=== PATIENT | male | born 1960 | race Caucasian/White ===

== ENCOUNTER → 2018-11-16 | Outpatient (CLI) | payer OTHER | END | disposition home or self-care (01) | LOC: HKI 10:22 | DX: Z01.818 Encounter for other preprocedural examination (principal); M16.12 Unilateral primary osteoarthritis, left hip | CPT/HCPCS: 73523 ==

== ENCOUNTER 2019-01-03 05:38 | Inpatient (IN) | payer OTHER ==
[2019-01-03] MEDS ORDERED: ACETAMINOPHEN 500 MG TAB PO (06:00)
[2019-01-03] MEDS: DEXAMETHASONE 4 MG/ML 1 ML INJ IV (06:40)
[2019-01-03] MEDS: LANSOPRAZOLE 30 MG CAP PO (06:40)
[2019-01-03] MEDS: ACETAMINOPHEN 1000MG/100ML IV 100 ML IVPB (06:40)
[2019-01-03] MEDS: GABAPENTIN 300 MG CAP PO ×2 (06:41→20:21)
[2019-01-03] MEDS: CELECOXIB 200 MG CAP PO (06:41)
[2019-01-03] MEDS: LACTATED RINGER'S 1,000 ML IV ×2 (06:44→12:26)
[2019-01-03] MEDS: ONDANSETRON 4 MG INJ IV (06:44)
[2019-01-03] MEDS ORDERED: SEVOFLURANE 15 MIN (07:30)
[2019-01-03] MEDS ORDERED: EPINEPHrine 1 MG INJ (07:32)
[2019-01-03] MEDS ORDERED: MIDAZOLAM 1 MG/ML 2 ML INJ (07:34)
[2019-01-03] MEDS ORDERED: FENTAnyl 50 MCG/ML VIAL (07:34)
[2019-01-03] MEDS ORDERED: PROPOFOL 20 ML (09:14)
[2019-01-03] MEDS ORDERED: CEFAZOLIN 1 GM INJ (09:14)
[2019-01-03] MEDS ORDERED: DEXAMETHASONE 4 MG/ML 5 ML INJ (09:14)
[2019-01-03] MEDS ORDERED: LIDOCAINE 2% (SDV) 5 ML INJ (09:14)
[2019-01-03] MEDS ORDERED: ROCURONIUM 50 MG INJ (09:14)
[2019-01-03] MEDS ORDERED: ACETAMINOPHEN 1000MG/100ML IV 100 ML IVPB (10:00)
[2019-01-03] MEDS: CEFAZOLIN 2 GM/50 ML (PMX) 50 ML IVPB ×3 (10:00→21:21)
[2019-01-03] MEDS ORDERED: NEOSTIGMINE 3 MG/3 ML SYRINGE (11:07)
[2019-01-03] MEDS ORDERED: GLYCOPYRROLATE 0.4 MG INJ (11:07)
[2019-01-03] MEDS ORDERED: ONDANSETRON 4 MG INJ (11:09)
[2019-01-03] MEDS ORDERED: LABETALOL HCL 20MG INJ IV (12:00)
[2019-01-03] MEDS ORDERED: MAGNESIUM HYDROXIDE 30ML CUP PO (12:00)
[2019-01-03] MEDS ORDERED: HYDROmorphONE 1 MG/ML SYG IV (12:00)
[2019-01-03] MEDS ORDERED: SENNA/DOCUSATE NA (8.6MG/50MG) TAB PO (12:00)
[2019-01-03] MEDS ORDERED: METOCLOPRAMIDE 10 MG INJ IV (12:00)
[2019-01-03] MEDS ORDERED: BISACODYL 10 MG SUPP PR (12:00)
[2019-01-03] MEDS ORDERED: EPHEDrine 25 MG/5 ML SYG IV (12:00)
[2019-01-03] MEDS ORDERED: NACL 0.9% 3 ML SYG IV (12:00)
[2019-01-03] MEDS ORDERED: NALOXONE (0.4 MG/ML) INJ IV (12:00)
[2019-01-03] MEDS ORDERED: HYDROmorphONE 1 MG/5 ML IV SYRINGE IV (12:00)
[2019-01-03] MEDS ORDERED: NA PHOSPHATE/BIPHOS 133 ML ENEMA PR (12:00)
[2019-01-03] MEDS ORDERED: hydrALAzine 20 MG INJ IV (12:00)
[2019-01-03] MEDS ORDERED: ALBUTEROL 0.083% (NEB) 2.5 MG/3 ML AMP HHN (12:00)
[2019-01-03] MEDS ORDERED: DIPHENHYDRAMINE 50 MG INJ IV ×2 (12:00)
[2019-01-03] MEDS ORDERED: ONDANSETRON 4 MG INJ IV (12:00)
[2019-01-03] MEDS ORDERED: MEPERIDINE 25 MG INJ IV (12:00)
[2019-01-03] MEDS ORDERED: MIDAZOLAM 1 MG/ML 2 ML INJ IV (12:00)
[2019-01-03] MEDS ORDERED: FENTAnyl 50 MCG/ML VIAL IV ×3 (12:00)
[2019-01-03] MEDS ORDERED: oxyCODONE 5 MG TAB PO ×2 (12:00)
[2019-01-03] MEDS ORDERED: KETOROLAC 30 MG INJ IV (12:00)
[2019-01-03] MEDS: DOCUSATE SODIUM 100 MG CAP PO (12:27)
[2019-01-03] MEDS ORDERED: GLUCOSE GEL 15 GRAM TUBE BUCCAL (12:30)
[2019-01-03] MEDS ORDERED: DEXTROSE 50% 50 ML SYRINGE IV ×2 (12:30)
[2019-01-03] MEDS ORDERED: GLUCOSE GEL 15 GRAM TUBE PO ×2 (12:30)
[2019-01-03] MEDS ORDERED: GLUCAGON 1 MG INJ IM (12:30)
[2019-01-03] MEDS: HYDROmorphONE 1 MG/5 ML IV SYRINGE IV ×3 (12:54→13:07)
[2019-01-03] MEDS: ACETAMINOPHEN 500 MG TAB PO ×2 (13:48→21:20)
[2019-01-03] MEDS: KETOROLAC 15 MG INJ IV (13:49)
[2019-01-03] MEDS: oxyCODONE 5 MG TAB PO ×2 (15:08→19:13)
[2019-01-03] MEDS: SOD CHLORIDE 0.9% 500 ML IV (15:10)
[2019-01-03] MEDS: SOD CHLORIDE 0.9% 1,000 ML IV ×2 (15:14→20:23)
[2019-01-03] MEDS ORDERED: INSULIN ASPART [NOVOLOG] 3 ML PEN SC (17:55)
[2019-01-03] MEDS: INSULIN ASPART [NOVOLOG] 3 ML PEN SC ×3 (17:59→20:33)
[2019-01-03] MEDS: INSULIN GLARGINE [LANTus] (100 UNITS/ML) SYG SC (20:31)
[2019-01-04] MEDS: ACCU-CHEK XX (02:00)
[2019-01-04] MEDS: SOD CHLORIDE 0.9% 1,000 ML IV ×2 (03:44→16:14)
[2019-01-04] MEDS: CEFAZOLIN 2 GM/50 ML (PMX) 50 ML IVPB (03:47)
[2019-01-04 05:00] LABS: ADD MAN DIFF? NO
[2019-01-04 05:05] LABS: BASOPHILS % 0.1 % (0.0-2.0); HEMATOCRIT 29.8 % (42.0-52.0); HEMOGLOBIN 9.7 g/dl (14.0-18.0); LYMPHOCYTES # 0.9 10^3/ul (0.8-2.9); MEAN CORPUSCULAR HGB CONC 32.6 g/dl (32.0-37.0); MEAN CORPUSCULAR VOLUME 85.9 fl (82.0-101.0); MEAN PLATELET VOLUME 9.4 fl (7.4-10.4); MONOCYTE # 1.3 10^3/ul (0.3-0.9); MONOCYTES % 8.4 % (0.0-11.0); NEUTROPHIL # 12.9 10^3/ul (1.6-7.5); NEUTROPHILS % 84.8 % (39.0-77.0); PLATELET COUNT 210 10^3/UL (140-415); RED BLOOD COUNT 3.47 10^6/ul (4.70-6.10); RED CELL DISTRIBUTION WIDTH 13.4 % (11.5-14.5)
[2019-01-04 05:05] LABS: WHITE BLOOD COUNT 15.2 10^3/ul (4.8-10.8)
[2019-01-04 05:14] LABS: HEMOGLOBIN A1C 6.3 % (0-5.9)
[2019-01-04 05:25] LABS: ANION GAP 7 (5-13); BLOOD UREA NITROGEN 13 mg/dl (7-20); CALCIUM 8.9 mg/dl (8.4-10.2); CARBON DIOXIDE 27 mmol/L (21-31); CHLORIDE 106 mmol/L (97-110); CREATININE 0.99 mg/dl (0.61-1.24); Estimated GFR > 60 mL/min (>60); GLUCOSE 170 mg/dl (70-220); POTASSIUM 4.7 mmol/L (3.5-5.1); SODIUM 140 mmol/L (135-144)
[2019-01-04 05:39] LABS: INR 1.08; PROTIME 14.1 Sec (11.9-14.9); PT RATIO 1.1
[2019-01-04 05:44] LABS: CHOLESTEROL 147 mg/dl (100-200)
[2019-01-04 05:44] LABS: CHOL/HDL RATIO 4.7 RATIO; HDL CHOLESTEROL 31 mg/dl (28-71); LDL CHOLESTEROL,CALCULATED 99 mg/dl; TRIGLYCERIDES 85 mg/dl (0-149)
[2019-01-04] MEDS: ACETAMINOPHEN 500 MG TAB PO ×2 (06:20→14:21)
[2019-01-04] MEDS: PANTOPRAZOLE (EC) 40 MG TAB PO (06:20)
[2019-01-04] MEDS: BETHANECHOL 25 MG TAB PO (06:21)
[2019-01-04 07:26] LABS: ADD UMIC YES; UR ASCORBIC ACID NEGATIVE (NEGATIVE); UR BACTERIA FEW /HPF (NONE SEEN); UR BILIRUBIN (Dip) NEGATIVE (NEGATIVE); UR BLOOD (Dip) 1+ mg/dL (NEGATIVE); UR CLARITY CLEAR (CLEAR); UR COLOR STRAW (YELLOW); UR GLUCOSE (Dip) NEGATIVE (NEGATIVE); UR KETONES (Dip) NEGATIVE (NEGATIVE); UR LEUKOCYTE ESTERASE (Dip) NEGATIVE Leu/ul (NEGATIVE); UR NITRITE (Dip) NEGATIVE (NEGATIVE); UR RBC 0 /HPF (0-5); UR SPECIFIC GRAVITY (Dip) 1.013 (1.003-1.030); UR TOTAL PROTEIN (Dip) NEGATIVE (NEGATIVE); UR UROBILINOGEN (Dip) NEGATIVE (NEGATIVE); UR WBC 1 /HPF (0-5)
[2019-01-04] MEDS: ASPIRIN (EC) 81 MG TAB PO (09:13)
[2019-01-04] MEDS: DOCUSATE SODIUM 100 MG CAP PO (09:13)
[2019-01-04] MEDS: LOSARTAN 50 MG TAB PO (09:18)
[2019-01-04] MEDS: AMLODIPINE 10 MG TAB PO (09:19)
[2019-01-04] MEDS: INSULIN ASPART [NOVOLOG] 3 ML PEN SC ×6 (10:32→18:08)
[2019-01-04] MEDS ORDERED: ONDANSETRON 4 MG INJ IV (12:00)
[2019-01-04] MEDS: oxyCODONE 5 MG TAB PO (18:11)
[2019-01-05] MEDS ORDERED: LOSARTAN 50 MG TAB PO (09:00)
== END 2019-01-04 18:39 | disposition home health service (06) | DRG 470 ==
LOC: REC 05:38 → MS1 13:30
PROVIDERS: Orthopaedic Surgery Adult Reconstructive Orthopaedic Surgery
PROC: 0SRB04Z Replacement of Left Hip Joint with Ceramic on Polyethylene Synthetic Substitute, Open Approach (ICD-10-PCS; principal; 2019-01-03 07:30)
DX: M16.12 Unilateral primary osteoarthritis, left hip (principal); I10 Essential (primary) hypertension; E11.9 Type 2 diabetes mellitus without complications; E66.9 Obesity, unspecified; Z68.34 Body mass index [BMI] 34.0-34.9, adult
CPT/HCPCS: 72170; 73500; 73530; 80048; 80061; 81001; 82962; 83036; 85025; 85610; 86850; 86900; 86901; 87081; 87086; 88304; 88311; 97116; 97161; 97165; 97530